=== PATIENT | female | born 1940 | race Caucasian/White ===

== ENCOUNTER 2022-04-11 07:16 | Day surgery (SDC) | payer OTHER, BC ==
[2022-04-10 10:25] VITALS: BMI 25.0
[2022-04-11] MEDS ORDERED: LIDOCAINE HCL/PF 2% SDV 5ML VIAL ONE (08:07)
[2022-04-11] MEDS ORDERED: PROPOFOL 80 ML ONE (08:08)
[2022-04-11 09:57] VITALS: TEMP 97.1
[2022-04-11 10:24] VITALS: BP 148/74; PULSE 57; RESP 19
== END 2022-04-11 10:24 | disposition home or self-care (01) ==
LOC: FASU-ENDO 07:16
PROVIDERS: ATTEND Internal Medicine Gastroenterology
PROC: 0DB68ZX Excision of Stomach, Via Natural or Artificial Opening Endoscopic, Diagnostic (ICD-10-PCS; 2022-04-11)
PROC: 0DB28ZX Excision of Middle Esophagus, Via Natural or Artificial Opening Endoscopic, Diagnostic (ICD-10-PCS; 2022-04-11)
PROC: 0DB98ZX Excision of Duodenum, Via Natural or Artificial Opening Endoscopic, Diagnostic (ICD-10-PCS; principal; 2022-04-11 08:45)
DX: Z13.810 Encounter for screening for upper gastrointestinal disorder (principal); K29.50 Unspecified chronic gastritis without bleeding; K20.90 Esophagitis, unspecified without bleeding
CPT/HCPCS: 88305-TC; 88342-TC

== ENCOUNTER 2023-05-29 07:05 | Day surgery (SDC) | payer OTHER, BC ==
[2023-05-25 15:51] VITALS: BMI 25.2
[2023-05-29] MEDS ORDERED: LIDOCAINE HCL/PF 2% SDV 5ML VIAL ONE ×2 (07:45→07:47)
[2023-05-29] MEDS ORDERED: PROPOFOL 160 ML ONE (07:46)
[2023-05-29] MEDS ORDERED: GLYCOPYRROLATE 0.2 MG/1 ML VIAL ONE (08:35)
[2023-05-29 08:57] VITALS: PULSE 62; RESP 16; TEMP 97.6
[2023-05-29 09:31] VITALS: BP 144/69
== END 2023-05-29 09:30 | disposition home or self-care (01) ==
LOC: FASU-ENDO 07:05
PROVIDERS: ATTEND Internal Medicine Gastroenterology
PROC: 0DBL8ZX Excision of Transverse Colon, Via Natural or Artificial Opening Endoscopic, Diagnostic (ICD-10-PCS; 2023-05-29)
PROC: 0DBK8ZX Excision of Ascending Colon, Via Natural or Artificial Opening Endoscopic, Diagnostic (ICD-10-PCS; principal; 2023-05-29 08:20)
DX: Z12.11 Encounter for screening for malignant neoplasm of colon (principal); D12.2 Benign neoplasm of ascending colon; D12.3 Benign neoplasm of transverse colon; K64.1 Second degree hemorrhoids; K64.8 Other hemorrhoids
CPT/HCPCS: 88305-TC

== ENCOUNTER 2024-02-02 07:31 | Day surgery (SDC) | payer OTHER, BC ==
[2023-12-29 14:57] VITALS: BMI 25.2
[2024-02-02 07:56] VITALS: RESP 16
[2024-02-02] MEDS ORDERED: PROPOFOL 160 ML ONE (08:27)
[2024-02-02] MEDS ORDERED: LIDOCAINE HCL/PF 2% SDV 5ML VIAL ONE (08:27)
[2024-02-02 09:21] VITALS: PULSE 78; TEMP 97.8
[2024-02-02 09:27] VITALS: BP 133/84
== END 2024-02-02 09:37 | disposition home or self-care (01) ==
LOC: FASU-ENDO 07:31
PROVIDERS: ATTEND Internal Medicine Gastroenterology
PROC: 0DB68ZX Excision of Stomach, Via Natural or Artificial Opening Endoscopic, Diagnostic (ICD-10-PCS; 2024-02-02)
PROC: 0DB48ZX Excision of Esophagogastric Junction, Via Natural or Artificial Opening Endoscopic, Diagnostic (ICD-10-PCS; principal; 2024-02-02 08:50)
DX: Z87.19 Personal history of other diseases of the digestive system (principal); K29.50 Unspecified chronic gastritis without bleeding; K20.90 Esophagitis, unspecified without bleeding; K44.9 Diaphragmatic hernia without obstruction or gangrene
CPT/HCPCS: 88305-TC; 88342-TC